=== PATIENT | female | born 1960 | race Caucasian/White ===

== ENCOUNTER → 2019-10-03 09:54 | Outpatient (BNVA) | payer OTHER, SELFPAY | PROVIDERS: PCP Family Medicine; Visit Provider Emergency Medicine | DX: M25.562 Pain in left knee (principal); M79.672 Pain in left foot | CPT/HCPCS: 73562; 73630 ==

== ENCOUNTER → 2023-05-14 10:48 | Outpatient (BNVA) | payer OTHER, SELFPAY | PROVIDERS: PCP Nurse Practitioner; Visit Provider Nurse Practitioner Family | DX: S92.514A Nondisplaced fracture of proximal phalanx of right lesser toe(s), initial encounter for closed fracture (principal); W19.XXXA Unspecified fall, initial encounter | CPT/HCPCS: 73630 ==

== ENCOUNTER → 2024-10-28 14:37 | Outpatient (BNVA) | payer MEDICARE, SELFPAY | PROVIDERS: PCP Nurse Practitioner; Visit Provider Orthopaedic Surgery | DX: M54.41 Lumbago with sciatica, right side (principal) | CPT/HCPCS: 72110; 99203 ==

== ENCOUNTER 2024-11-17 14:55 | Outpatient (CLI) | payer MEDICARE, SELFPAY ==
--- NOTE | 2024-11-17 15:15 | MR_ITS ---
WS: [id number] MRI LUMBAR SPINE NONCONTRAST TECHNIQUE: Sagittal T1, T2 and STIR imaging. Axial T1 and T2 imaging. CLINICAL INFORMATION: back pain COMPARISON: None. FINDINGS: Counting performed from the craniocervical junction for. 5 nonrib-bearing vertebral bodies considered L1-L5. S1 is transitional and partially lumbarized. Recommend plain film correlation prior to surgical intervention L1-L2: Mild disc bulging. L2-L3: Mild disc bulging. Narrowing of the subarticular recess bilaterally. Mild facet arthropathy. L3-L4: Mild disc bulging with narrowing of the RIGHT subarticular recess. Mild facet arthropathy. Mild bilateral foraminal narrowing. L4-L5: Slight anterolisthesis. Mild disc bulging. Impingement on the subarticular recess bilaterally. Moderate facet arthropathy. Mild LEFT foraminal narrowing. L5-S1: RIGHT paracentral disc protrusion. Impingement of the traversing S1 nerve root in the subarticular recess. Mild central canal stenosis. RIGHT foraminal protrusion with mild RIGHT foraminal narrowing. S1-S2: S1 is transitional and partially lumbarized. Spinal canal and foramen are patent. Mild facet arthropathy. Visualized pelvic bony structures: Normal. Paravertebral soft tissues: Normal. MR/MR lumbar spine wo con* [id number] IMPRESSION: 1. Counting performed from the craniocervical junction for. 5 nonrib-bearing vertebral bodies considered L1-L5 for the purposes of this dictation. S1 is tra nsitional and partially lumbarized. Recommend plain film correlation prior to s urgical intervention 2. RIGHT subarticular protrusion L5-S1 with impingement of traversing RIGHT S1 nerve root in the subarticular recess. RIGHT foraminal protrusion at this leve l. 3. Disc bulging L4-5 impinges the subarticular recess bilaterally. 4. Mild annular bulging L3-4 with narrowing of the RIGHT greater than LEFT sub articular recess. 5. Moderate facet arthropathy L4-L5 and L5-S1.
== END 2024-11-17 14:56 | disposition home or self-care (01) ==
PROVIDERS: PCP Nurse Practitioner; Visit Provider Orthopaedic Surgery
DX: M54.41 Lumbago with sciatica, right side (principal); R93.7 Abnormal findings on diagnostic imaging of other parts of musculoskeletal system; M51.27 Other intervertebral disc displacement, lumbosacral region; M51.369 Other intervertebral disc degeneration, lumbar region without mention of lumbar back pain or lower extremity pain; M47.896 Other spondylosis, lumbar region; M47.897 Other spondylosis, lumbosacral region; M48.061 Spinal stenosis, lumbar region without neurogenic claudication; M48.07 Spinal stenosis, lumbosacral region; M47.898 Other spondylosis, sacral and sacrococcygeal region
CPT/HCPCS: 72148

== ENCOUNTER → 2024-12-04 14:55 | Outpatient (BNVA) | payer MEDICARE, SELFPAY | PROVIDERS: PCP Nurse Practitioner; Visit Provider Orthopaedic Surgery | DX: Z09 Encounter for follow-up examination after completed treatment for conditions other than malignant neoplasm (principal) | CPT/HCPCS: 99214 ==

== ENCOUNTER → 2024-12-15 14:50 | Outpatient (BNVA) | payer MEDICARE, SELFPAY | PROVIDERS: PCP Nurse Practitioner; Visit Provider Anesthesiology Pain Medicine | DX: M54.41 Lumbago with sciatica, right side (principal); M47.816 Spondylosis without myelopathy or radiculopathy, lumbar region | CPT/HCPCS: 99204 ==

== ENCOUNTER → 2024-12-24 14:30 | Outpatient (BNVA) | payer MEDICARE, SELFPAY | PROVIDERS: PCP Nurse Practitioner; Visit Provider Anesthesiology Pain Medicine | DX: M79.18 Myalgia, other site (principal); M54.41 Lumbago with sciatica, right side; M47.816 Spondylosis without myelopathy or radiculopathy, lumbar region | CPT/HCPCS: 20553; 99213; J1010; J3490 ==

== ENCOUNTER → 2025-01-13 11:02 | Outpatient (BNVA) | payer MEDICARE, SELFPAY | PROVIDERS: PCP Nurse Practitioner; Visit Provider Nurse Practitioner | DX: R50.9 Fever, unspecified (principal) | CPT/HCPCS: 87426 ==